=== PATIENT | male | born 1965 | race African-American/Black ===

== ENCOUNTER 2016-10-28 11:17 | Emergency (ER) | payer OTHER ==
[2016-10-28 12:48] LABS: HEMOGLOBIN 15.1 gm/dl (14.0-17.5); RED BLOOD COUNT 5.06 M/UL (4.20-5.50)
[2016-10-28 13:03] LABS: BUN/CREATININE RATIO 13 (0-10)
== END 2016-10-28 14:15 | disposition home or self-care (01) ==
LOC: ER1 11:17
PROVIDERS: Physician Assistant Medical
DX: R10.30 Lower abdominal pain, unspecified (principal); I10 Essential (primary) hypertension; E78.5 Hyperlipidemia, unspecified; E11.9 Type 2 diabetes mellitus without complications; F17.210 Nicotine dependence, cigarettes, uncomplicated; Z79.84 Long term (current) use of oral hypoglycemic drugs
CPT/HCPCS: 36415; 76870; 80053; 81001; 83690; 85025; 99284

== ENCOUNTER 2020-06-28 09:33 | Emergency (ER) | payer OTHER ==
[~2020-06-28 09:33] MED LIST: IBUPROFEN600 MG PO
[2020-06-28] MEDS ORDERED: AMOXICILLIN500 MG PO (10:36)
== END 2020-06-28 10:45 | disposition home or self-care (01) ==
LOC: ER1 09:33
DX: S09.21XA Traumatic rupture of right ear drum, initial encounter (principal); E11.9 Type 2 diabetes mellitus without complications; F17.200 Nicotine dependence, unspecified, uncomplicated; W20.8XXA Other cause of strike by thrown, projected or falling object, initial encounter
CPT/HCPCS: 99282

== ENCOUNTER 2021-02-23 08:04 | Emergency (ER) | payer OTHER ==
[~2021-02-23 08:04] MED LIST changes: +AMOXICILLIN500 MG PO
== END 2021-02-23 10:00 | disposition home or self-care (01) ==
LOC: ER1 08:04
DX: M25.561 Pain in right knee (principal); Z96.651 Presence of right artificial knee joint
CPT/HCPCS: 29505; 73562; 99283

== ENCOUNTER 2021-04-06 19:37 | Emergency (ER) | payer OTHER ==
[2021-04-06 20:04] LABS: HEMOGLOBIN 14.7 gm/dl (14.0-17.5); RED BLOOD COUNT 4.85 M/UL (4.20-5.50); WHITE BLOOD COUNT 6.8 K/UL (4.5-11.0)
[2021-04-06 20:23] LABS: BUN/CREATININE RATIO 20 (0-10)
[2021-04-06] MEDS ORDERED: CLEOCIN HCL300 MG PO (23:05)
== END 2021-04-06 23:27 | disposition home or self-care (01) ==
LOC: ER1 19:37
PROVIDERS: Physician Assistant Medical
DX: J44.1 Chronic obstructive pulmonary disease with (acute) exacerbation (principal); E11.621 Type 2 diabetes mellitus with foot ulcer; I10 Essential (primary) hypertension; F17.200 Nicotine dependence, unspecified, uncomplicated; L97.519 Non-pressure chronic ulcer of other part of right foot with unspecified severity; Z79.84 Long term (current) use of oral hypoglycemic drugs; Z20.822 Contact with and (suspected) exposure to COVID-19
CPT/HCPCS: 71045; 73620; 80053; 82550; 82553; 83874; 84484; 85025; 93005; 94664; 94760; 99285; U0002